=== PATIENT | female | born 1990 | race Caucasian/White ===

== ENCOUNTER 2023-09-05 18:34 | Emergency (ER) | payer SELFPAY ==
[2023-09-05 20:09] LABS: SARS-CoV-2 NAA Rapid Test Not Detected (NotDetected)
== END 2023-09-05 20:25 | disposition home or self-care (01) ==
LOC: CSHERS 18:34
DX: J10.1 Influenza due to other identified influenza virus with other respiratory manifestations (principal)
CPT/HCPCS: 99283